=== PATIENT | female | born 1970 | race Caucasian/White ===

== ENCOUNTER 2020-04-18 12:34 | Outpatient (REF) | payer OTHER, SELFPAY | END 2020-04-18 12:35 | disposition home or self-care (01) | LOC: HO.LAB 12:34 | PROVIDERS: Visit Provider Internal Medicine | DX: Z20.822 Contact with and (suspected) exposure to COVID-19 (principal) | CPT/HCPCS: 36415; C9803; U0003 ==

== ENCOUNTER 2022-11-17 12:13 | Emergency (ER) | payer OTHER, SELFPAY ==
--- NOTE | ~2022-11-17 | CT_ITS ---
EXAMINATION: CT ABDOMEN AND PELVIS WITH CONTRAST CLINICAL INFORMATION: Diffuse abdominal pain. COMPARISON: CT scan abdomen pelvis 06/10/2015, 10/24/2012, dictated report only. Images are not available for review TECHNIQUE: Multidetector volumetric images were obtained from the superior aspect of the liver through the pubic symphysis following administration 85 mL of Omnipaque 350 intravenous contrast. Sagittal and coronal reformatted images were obtained on the technologist's workstation. Oral contrast: No This CT examination was performed using dose optimization techniques as appropriate, variously including the following: *Automated exposure control *Adjustment of mA and/or kV according to patient size (this includes techniques or standardized protocols for targeted exams where dose is matched to indication/reason for exam; i.e. extremities or head) *Use of iterative reconstruction technique DLP: 1025 mGy-cm FINDINGS: LUNG BASES: The visualized lung bases are unremarkable. LIVER, GALLBLADDER, AND BILIARY TREE: The liver is normal in size, shape, and attenuation. No focal hepatic lesion or biliary ductal dilatation is present. The gallbladder is unremarkable with no evidence of radiopaque gallstones, gallbladder wall thickening, or obvious pericholecystic inflammatory changes. PANCREAS: Unremarkable. SPLEEN: Unremarkable. ADRENAL GLANDS: Unremarkable. 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 There is a nonobstructive stone in the upper pole of left kidney measuring 1 cm. This has a density measurement of 317 Hounsfield units. This stone is 13 cm from the posterior skin line. There is a 5 mm stone at the lower pole of left kidney. There is no hydroureter. There is no ureteral calculus. The upper and lower pole moiety ureters to diffuse in the midabdomen with a single ureter entering the bladder. Small cortical scar at the upper pole of left kidney. Right kidney: 1 mm nonobstructive stone in the upper pole. No ureteral stone and no hydronephrosis. There are small hypodensities in the cortex of both kidneys that are likely small renal cysts. No follow-up imaging is recommended for simple renal cyst.. BLADDER: Unremarkable. GASTROINTESTINAL TRACT: The small and large bowel are unremarkable. The appendix is nonvisualized. No inflammation or edema or free fluid in the mesentery. ABDOMINAL WALL: No significant hernia is appreciated. LYMPH NODES: Normal. VASCULAR: Vascular wall calcifications of aorta. No aneurysm. PELVIC VISCERA: Unremarkable. OSSEOUS STRUCTURES: Unremarkable. CT/CT abdomen pelvis w IV con IMPRESSION: 1. No acute abnormality CT scan abdomen pelvis. 2. Bilateral nonobstructive renal stones. Fleischner guidelines were followed.
[2022-11-17 12:24] VITALS: BP 148/102; PULSE 97; RESP 17; TEMP 36.6; O2SAT 98; BMI 40.9
--- NOTE | 2022-11-17 12:24 | ED_ITS ---
HPI - General Adult General Chief complaint: Abdominal Pain Stated complaint: Bloated/Abd pain Time Seen by Provider: 11/17/22 14:23 Source: patient Mode of arrival: ambulatory Limitations: no limitations History of Present Illness HPI narrative: Patient comes to the emergency room complaining of diffuse abdominal pain for approximately 1 week. Patient states she feels bloated and feels that her abdomen is significantly distended. Patient reports regular bowel movements, also complaining of nausea and occasional vomiting. Patient denies diarrhea, no URI or UTI, no fever chills. Related Data Previous Rx's Medication Instructions Recorded hyoscyamine sulfate 0.125 mg tablet 0.125 mg PO QID PRN dyspepsia #14 11/17/22 tabs Allergies Allergy/AdvReac Type Severity Reaction Status Date / Time pollen extracts [POLLEN] Allergy Unknown ITCHY Unverified 12/13/19 18:32 EYES,RUNNY NOSE Review of Systems Review of Systems: Constitutional : No Weight loss, No Fever, No Chills, No Night Sweats, No Fatigue, No Malaise ENT/Mouth : No Hearing loss, No Ear Pain, No Nasal Congestion, No Sinus Pain, No Hoarseness, No sore throat, No Rhinorrhea, No Swallowing Difficulty Eyes: No Eye Pain, No Swelling, No Redness, No Foreign Body, No Discharge, No Vision Changes Cardiovascular : No Chest Pain, No SOB, No Dyspnea on Exertion, No Orthopnea, No Edema, No Palpitations Respiratory : No Cough, No Sputum, No Wheezing, No Smoke Exposure, No Dyspnea Gastrointestinal : Complaining of nausea, mild vomiting, no diarrhea, no constipation, complaining of diffuse abdominal distension and discomfort Genitourinary : no irregular bleeding, No Dysuria, No Urinary Frequency, No Hematuria, No Urinary Incontinence, No Urgency, No Flank Pain, No Urinary Flow Changes, No Hesitancy Musculoskeletal : No joint pain, No Myalgias, No Joint Swelling Skin : No Skin Lesions, No rash Neuro : No Weakness, No Numbness, No Paresthesias, No Loss of Consciousness, No Dizziness, No Headache Psych : No Anxiety/Panic, No Depression, No SI/HI/AH/VH, No Social Issues, Heme/Lymph: No Bruising, No Bleeding,No Lymphadenopathy Endocrine : No Polyuria, No Polydipsia, No Temperature Intolerance PMFSH Social History Social History Advance Directives: No Advance Directives Information Provided: No Physical Exam ED Vital Signs: Vital Signs - 24 hr 11/17/22 12:24 Temperature 98 F Pulse Rate 97 Respiratory Rate 17 Blood Pressure 148/102 H Pulse Oximetry 98 Oxygen Delivery Method Room Air BMI result Body Mass Index 40.9 Const Other: Appearance: Alert. Oriented X3. No acute distress but seems uncomfortable Eyes: Pupils equal, round and reactive to light. ENT: Pharynx normal. Neck: Normal inspection. Neck supple. No lymph nodes noted. No crepitus CVS: Normal heart rate and rhythm. Pulses normal. Normal S1 and S2 Respiratory: No respiratory distress. Breath sounds normal. No Wheezing. No rales Abdomen: Soft, diffusely distended, tenderness to palpation in all quadrants Skin: Skin warm and dry. Normal skin color. Normal skin turgor. Extremities: No lower extremity edema. No Lacerations. No Rash Neuro: Oriented X 3. No motor deficit. No sensory deficit. Moving all extremities. No slurred speech. CN 2 through 12 grossly intact Psych: calm, cooperative, normal affect Course Course Course Narrative: RME- 52-year-old woman presents for evaluation of abdominal pain with distention. Her symptoms started 1 week ago. She reports having regular bowel movements including this morning. Also endorses nausea vomiting. Plan for labs, UA, and you will be deferred to primary provider Medications Administered Discontinued Medications Generic Name Dose Route Start Last Admin Trade Name Freq PRN Reason Stop Dose Admin Iohexol 100 ml 11/17/22 15:08 11/17/22 15:10 Iohexol 350 Mg/Ml 100 Ml Infus..Btl IV 11/17/22 15:09 85 ml ONCE ONE Administration Ketorolac Tromethamine 30 mg 11/17/22 14:31 11/17/22 14:53 Ketorolac Tromethamine 30 Mg/Ml Vial IVPUSH 11/17/22 14:32 30 mg ONCE ONE Administration Ondansetron HCl 4 mg 11/17/22 14:31 11/17/22 14:53 Ondansetron Hcl 4 Mg/2 Ml Vial IVPUSH 11/17/22 14:32 4 mg ONCE ONE Administration Medical Decision Making Medical Decision Making [facility] Narrative: -my interpretation of labs: Hematology and chemistry labs are all within normal limits, CT scan pending -patient receiving Zofran, Toradol IV -my interpretation of CT scan, I do not see any small bowel obstructions or significant amount of stool in the intestines. -radiology report: No acute abdominal CT scan of the abdomen/pelvis -overall patient feeling better, patient receive a dose of Zofran and Toradol. Patient ready for discharge Differential Diagnosis Differential Diagnoses: The differential diagnosis associated with the presentation includes (Small-bowel obstruction, constipation, pancreatitis, appendicitis, cholecystitis, functional abdominal pain) Admission/Observation Consideration of admission/observation: Escalation of care including admission/observation considered (Patient came in complaining of abdominal pain, distension, patient was considered) Lab Data MDM Lab Attestation statement: I reviewed the patient's lab results. 11/17/22 12:49 11/17/22 12:49 Labs: Lab Results 11/17/22 11/17/22 Range/Units 12:49 12:49 WBC 8.7 (4.8-10.8) X10*3/uL RBC 4.54 (4.20-5.50) X10*6/uL Hgb 13.8 (12.0-16.0) g/dl Hct 41.4 (37.0-47.0) % MCV 91.2 (80.0-98.0) fL MCH 30.4 (27.0-33.0) pg MCHC 33.3 (31.0-35.0) g/dl RDW 12.7 (11.0-16.0) % Plt Count 228 (160-400) X10*3/uL MPV 10.2 (9.4-12.3) fL Immature Gran % (Auto) 0.5 H (0.0-0.4) % Neut % (Auto) 56.8 (45-73) % Lymph % (Auto) 33.5 (20-40) % [place] % (Auto) 6.2 (2-11) % Eos % (Auto) 2.3 (0-4) % Baso % (Auto) 0.7 (0-2) % Lymph # (Auto) 2.9 (1.2-4.9) X10*3/uL [place] # (Auto) 0.5 (0.1-1.2) X10*3/uL Eos # (Auto) 0.2 (0.0-0.4) X10*3/uL Baso # (Auto) 0.1 (0.0-0.2) X10*3/uL Abs Immat Gran (auto) 0.04 H (0.00-0.03) X10*3/uL Absolute Neuts (auto) 4.9 (2.0-8.3) x10*3/uL Absolute Nucleated RBC 0.000 (0.0-0.012) X10*3/uL Nucleated RBC % (auto) 0.0 (0.0-0.2) /100WBC Sodium 138 (135-145) mmol/L Potassium 4.4 (3.3-5.1) mmol/L Chloride 108 (96-108) mmol/L Carbon Dioxide 24 (22-29) mmol/L Anion Gap 10 L (12-20) BUN 11 (9-16) mg/dL Creatinine 0.71 (0.5-1.4) mg/dL Estim Creat Clear Calc 126.1 Estimated GFR > 60 Random Glucose 114 (60-115) mg/dL Calcium 9.6 (8.4-10.2) mg/dL Total Bilirubin 0.2 (0.0-1.0) mg/dL AST 15 (5-31) U/L ALT 15 (0-31) U/L Alkaline Phosphatase 105 (39-117) U/L Total Protein 7.2 (6.5-8.0) g/dL Albumin 4.2 (3.5-5.0) g/dL Lipase 38 (8-78) U/L Independent Interpretation I performed an independent interpretation of an: CT Scan Radiology Impression Discussion of test interpretation with radiology: I have reviewed the radiologist's reading. Radiologist Impression: FINDINGS: LUNG BASES: The visualized lung bases are unremarkable.? LIVER, GALLBLADDER, AND BILIARY TREE: The liver is normal in size, shape, and attenuation. No focal hepatic lesion or biliary ductal dilatation is present. The gallbladder is unremarkable with no evidence of radiopaque gallstones, gallbladder wall thickening, or obvious pericholecystic inflammatory changes.? PANCREAS: Unremarkable.? SPLEEN: Unremarkable.? ADRENAL GLANDS: Unremarkable.? 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 There is a nonobstructive stone in the upper pole of left kidney measuring 1 cm. This has a density measurement of 317 Hounsfield units. This stone is 13 cm from the posterior skin line. There is a 5 mm stone at the lower pole of left kidney. There is no hydroureter. There is no ureteral calculus. The upper and lower pole moiety ureters to diffuse in the midabdomen with a single ureter entering the bladder. Small cortical scar at the upper pole of left kidney. Right kidney: 1 mm nonobstructive stone in the upper pole. No ureteral stone and no hydronephrosis. There are small hypodensities in the cortex of both kidneys that are likely small renal cysts. No follow-up imaging is recommended for simple renal cyst..? BLADDER: Unremarkable.? GASTROINTESTINAL TRACT: The small and large bowel are unremarkable. The appendix is nonvisualized. No inflammation or edema or free fluid in the mesentery. ABDOMINAL WALL: No significant hernia is appreciated.? LYMPH NODES: Normal. VASCULAR: Vascular wall calcifications of aorta. No aneurysm. PELVIC VISCERA: Unremarkable.? OSSEOUS STRUCTURES: Unremarkable.? CT/CT abdomen pelvis w IV con IMPRESSION: 1.? No acute abnormality CT scan abdomen pelvis. 2.? Bilateral nonobstructive renal stones. ? Fleischner guidelines were followed. Independent Historian Clinical information obtained from an independent historian. 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 EKG showed new onset T-wave inversions anterolaterally and in the inferior leads when compared to June 2021. No elevation in cardiac enzymes without chest x-ray pathologic findings Critical Care Time Critical Care Time Critical Care Time: Yes Total Critical Care Time: 60 Attestation: I have personally provided critical care time. Time includes review of lab data, radiology results, discussion with consultants, and monitoring for potential decompensation. Intervention performed as documented. Discharge Plan Discharge Clinical Impression: Abdominal pain Patient Disposition: Home, Self-Care Instructions: Abdominal Pain (ED) Additional Instructions: Please follow-up with your primary care physician tomorrow. If you have any worsening or new symptoms, please return to the emergency room or call 911 Prescriptions: New hyoscyamine sulfate 0.125 mg tablet 0.125 mg PO QID PRN (Reason: dyspepsia) Qty: 14 0RF
[2022-11-17 12:53] LABS: MANUAL DIFF FLAG NO
[2022-11-17 12:55] LABS: Basophils Absolute Auto 0.1 X10*3/uL (0.0-0.2); Basophils Percent Auto 0.7 % (0-2); Eosinophils Absolute Auto 0.2 X10*3/uL (0.0-0.4); Eosinophils Percent Auto 2.3 % (0-4); Hematocrit 41.4 % (37.0-47.0); Hemoglobin 13.8 g/dl (12.0-16.0); Imm Gran Abs Auto 0.04 X10*3/uL (0.00-0.03); Imm Gran Pct Auto 0.5 % (0.0-0.4); Lymphocytes Absolute Auto 2.9 X10*3/uL (1.2-4.9); Lymphocytes Percent Auto 33.5 % (20-40); Mean Corpuscular HGB Conc 33.3 g/dl (31.0-35.0); Mean Corpuscular Hemoglobin 30.4 pg (27.0-33.0); Mean Corpuscular Volume 91.2 fL (80.0-98.0); Mean Platelet Volume 10.2 fL (9.4-12.3); Monocytes Absolute Auto 0.5 X10*3/uL (0.1-1.2); Monocytes Percent Auto 6.2 % (2-11); Neutrophils Absolute Auto 4.9 x10*3/uL (2.0-8.3); Neutrophils Percent Auto 56.8 % (45-73); Platelet Count 228 X10*3/uL (160-400); Red Blood Count 4.54 X10*6/uL (4.20-5.50); Red Cell Distribution Width 12.7 % (11.0-16.0); White Blood Count 8.7 X10*3/uL (4.8-10.8)
[2022-11-17 13:16] LABS: Alanine Aminotransferase 15 U/L (0-31); Albumin Level 4.2 g/dL (3.5-5.0); Alkaline Phosphatase 105 U/L (39-117); Anion Gap 10 (12-20); Aspartate Amino Transferase 15 U/L (5-31); Bilirubin Total 0.2 mg/dL (0.0-1.0); Blood Urea Nitrogen 11 mg/dL (9-16); Calcium 9.6 mg/dL (8.4-10.2); Carbon Dioxide 24 mmol/L (22-29); Chloride 108 mmol/L (96-108); Creatinine Clr Calc Pharmacy 126.1; Estimated Glomerular Filt Rate > 60; Glucose Random 114 mg/dL (60-115); Lipase 38 U/L (8-78); Potassium 4.4 mmol/L (3.3-5.1); Sodium 138 mmol/L (135-145); Total Protein 7.2 g/dL (6.5-8.0)
[2022-11-17] MEDS: Ketorolac Tromethamine 30 MG/ML VIAL IVPUSH (14:53)
[2022-11-17] MEDS: ondansetron HCL 4 MG/2 ML VIAL IVPUSH (14:53)
--- NOTE | 2022-11-17 15:00 | PC.NURSE ---
alert and oriented, respirations even and unlabored. pt reports feeling 8 months . stating she has hard a hard time eating and drinking since tuesday due to the abd pain and bloating. iv established, awaiting ct scan at this time. medicated per the MAR.
[2022-11-17] MEDS: iohexoL 350 MG/ML 100 ML INFUS..BTL IV (15:10)
== END 2022-11-17 17:01 | disposition home or self-care (01) ==
PROVIDERS: Physician Assistant; Emergency Provider Emergency Medicine; PCP Internal Medicine Geriatric Medicine
DX: R14.0 Abdominal distension (gaseous) (principal); R10.13 Epigastric pain; Z79.899 Other long term (current) drug therapy
CPT/HCPCS: 36415; 74177; 80053; 83690; 85025; 96374; 96375; 99284; J1885; J2405; Q9967